=== PATIENT | female | born 1985 | race Caucasian/White ===

== ENCOUNTER 2017-06-06 15:05 | Emergency (ER) | payer BC ==
[~2017-06-06] VITALS: Ht 160 cm; Wt 60.0 kg
[2017-06-06] MEDS ORDERED: DIVAL250 PO (15:11)
[2017-06-06] MEDS ORDERED: MORPHINE SULFATE 4 MG/ML CPJ (NOT FOR IM USE) IV STA (17:51)
[2017-06-06] MEDS ORDERED: SODIUM CHLORIDE 0.9% 1,000 ML IV ONE (17:51)
[2017-06-06] MEDS ORDERED: ONDANSETRON HCL 4MG/2ML VIAL IV STA (17:51)
[2017-06-06] MEDS ORDERED: LEVETIRACETAM 500MG PREMIX 100 ML IV ONE (18:00)
[2017-06-06 19:12] LABS: CHLORIDE 109 mEq/L (98-107)
[2017-06-06 19:13] LABS: BASOPHILS % 0.8 % (0.0-2.0); EOSINOPHILS % 0.3 % (0.0-5.0); HEMATOCRIT. 35.4 % (36.0-48.0); HEMOGLOBIN. 11.9 g/dL (12.0-16.0); LYMPHOCYTES % 23.5 % (20.0-50.0); MEAN CORPUSCULAR HEMOGLOBIN 30.7 pg (28.0-32.0); MEAN CORPUSCULAR VOLUME 91.7 fL (81.0-99.0); MEAN PLATELET VOLUME 7.9 fl (7.4-10.4); MONOCYTES % 6.9 % (2.0-8.0); NEUTROPHILS % 68.5 % (40.0-76.0); PLATELET 265 x1000/uL (130-400); RED BLOOD CELL COUNT 3.87 mill/uL (4.2-5.4); RED CELL DISTRIBUTION WIDTH 16.3 % (11.6-14.6)
[2017-06-06 19:17] LABS: CARBON DIOXIDE 27 mEq/L (21-32)
[2017-06-06 19:18] LABS: ETHANOL BLOOD < 10 mg/dL
[2017-06-06 19:19] LABS: HCG SCREEN NEGATIVE
[2017-06-06 19:24] LABS: CREATINE KINASE 343 IU/L (26-192)
[2017-06-06 19:32] LABS: CARBAMAZEPINE < 0.5 ug/mL (4-12); PHENOBARBITAL < 2.1 ug/mL (15.0-40.0)
[2017-06-06] MEDS ORDERED: VALPROIC ACID 250MG CAPSULE PO ONE (19:45)
[2017-06-06 20:39] VITALS: BP 105/81
== END 2017-06-06 20:44 | disposition home or self-care (01) ==
LOC: ER 15:26
DX: R56.9 Unspecified convulsions (principal); E86.0 Dehydration
CPT/HCPCS: 36415; 80053; 80156; 80165; 80184; 80185; 82550; 84443; 84703; 85025; 93005; 96365; 96375; 99285; G0482; J1953; J2270; J2405; J7030; Z7610